=== PATIENT | female | born 1935 | race American Indian/Alaskan Native ===

== ENCOUNTER 2017-09-07 10:43 | Day surgery (SDC) | payer MEDICARE ==
[~2017-09-07 10:43] MED LIST: AK-Dilate ONE; IOPIDINE ONE; MYDRIACYL ONE
[2017-09-07 11:34] VITALS: BP 148/78
[2017-09-07] MEDS ORDERED: IOPIDINE OD ONE (11:45)
[2017-09-07] MEDS ORDERED: AK-Dilate OD ONE (11:47)
[2017-09-07] MEDS ORDERED: MYDRIACYL OD ONE (11:47)
== END 2017-09-07 12:21 | disposition home or self-care (01) ==
LOC: OR 10:43
PROVIDERS: ATTEND Specialist
DX: H26.491 Other secondary cataract, right eye (principal); E78.00 Pure hypercholesterolemia, unspecified; I10 Essential (primary) hypertension